=== PATIENT | female | born 1975 | race Caucasian/White ===

== ENCOUNTER → 2018-03-29 | Outpatient (CLI) | payer OTHER ==
--- NOTE | 2018-03-29 13:12 | CT ---
EXAMINATION TYPE: CT foot RT wo con DATE OF EXAM: 03/29/2018 COMPARISON: None HISTORY: Right foot pain after unknown injury. CT DLP: 212.5 mGycm Automated exposure control for dose reduction was used. Unenhanced CT of the right foot was performed. Bone and soft tissue window settings are submitted. 3- D reconstruction was obtained at a separate workstation. FINDINGS: There are comminuted fractures noted to involve the bases of the second, third, fourth and fifth meta tarsals with displacement seen. There is dorsal dislocation with associated chip fractures of the fir st metatarsal relative to the first cuneiform. There is widening of the first intermetatarsal space a t 11 mm compatible with Lisfranc fracture dislocation. IMPRESSION: 1. Fractures involving the bases of the first through fifth metatarsals. At the first tarsal metatars al joint there is dorsal dislocation of the first metatarsal. Widening of the first intermetatarsal j oint compatible with Lisfranc fracture dislocation.
== END ==
LOC: RADCTMAIN 12:30
PROVIDERS: ATTEND Physician Assistant
DX: S92.311A Displaced fracture of first metatarsal bone, right foot, initial encounter for closed fracture (principal); S92.321A Displaced fracture of second metatarsal bone, right foot, initial encounter for closed fracture; S92.331A Displaced fracture of third metatarsal bone, right foot, initial encounter for closed fracture; S92.341A Displaced fracture of fourth metatarsal bone, right foot, initial encounter for closed fracture; S92.351A Displaced fracture of fifth metatarsal bone, right foot, initial encounter for closed fracture; S93.324A Dislocation of tarsometatarsal joint of right foot, initial encounter